=== PATIENT | female | born 1955 | race Caucasian/White ===

== ENCOUNTER 2017-10-13 01:39 | Emergency (ER) | payer BC ==
[~2017-10-13] VITALS: Ht 152.4 cm; Wt 59.0 kg
[~2017-10-13 01:39] MED LIST: ASPIRIN81 M2 PO; BACTROBAN CREAM30 GM TOP; BRILINTA90 MG PO; COZAAR; COZAAR 25 MG TA25 M2 PO; CRESTOR20 MG PO; DOXYCYCLINE 10100 MG PO; EVISTA; EVISTA PO; LAMICTAL XR100 MG PO; LOPRESSOR 12.12.5 MG PO; MULTI VITAMIN1 EACH PO; MULTIVITAMINS PO; NITROGLYCERIN0.4 MG SUBLING; PEPCID40 MG PO; PROZAC; PROZAC 20 MG20 M1 PO; SPIRONOLACTONE25 M1 PO; VITAMIN D 5050000 I1 PO; VITAMIN D1000 UNI1 PO; VITAMINC500 PO
[2017-10-13] MEDS ORDERED: LITHIUM CARBON150 MG PO (01:45)
[2017-10-13 02:12] LABS: ABSOLUTE BASOPHILS 0.1 thou/uL (0.0-0.2); ABSOLUTE EOSINOPHILS 0.4 thou/uL (0.0-0.7); ABSOLUTE MONOCYTES 1.1 thou/uL (0.0-1.2); ABSOLUTE NEUTROPHILS 6.7 thou/uL (1.6-8.1); BASOPHILS 0.8 %; EOSINOPHILS 3.8 %; HEMATOCRIT 35.7 % (37.0-47.0); HEMOGLOBIN 11.9 gm/dL (12.0-15.0); LYMPHOCYTES 19.8 %; MCH 30.1 pg (26.0-34.0); MCHC 33.3 g/dL (28.0-37.0); MCV 90.6 fL (80.0-100.0); MONOCYTES 10.4 %; MPV 7.2 fl. (7.2-11.1); NUCLEATED RBCS 0 /100WBC; PLATELET COUNT* 287 thou/uL (150-400); POLYS 65.2 %; RBC 3.94 mil/uL (4.20-5.00); RDW-CV 13.5 % (10.5-14.5); WBC 10.2 thou/uL (4.0-11.0)
[2017-10-13 02:16] LABS: ANION GAP 6 mmol/L (7-16); BUN 24 mg/dL (7-18); CHLORIDE 102 mmol/L (98-107); CO2 32 mmol/L (21-32); CREATININE 1.1 mg/dL (0.6-1.3); GLUCOSE 103 mg/dL (70-99); POTASSIUM 3.8 mmol/L (3.5-5.1); SODIUM 140 mmol/L (136-145)
[2017-10-13 02:26] LABS: APTT 24.7 Seconds (25.0-31.3); PROTIME 10.2 Seconds (9.20-11.50)
[2017-10-13 02:35] LABS: ALBUMIN 3.8 g/dL (3.4-5.0); ALKALINE PHOSPHATASE 71 U/L (46-116); CK-MB MASS 1.3 ng/mL (<0.5-3.6); LIPASE 450 U/L (73-393); NT-PRO BRAIN NAT PEPTIDE 264 pg/mL (<300); SGOT 20 U/L (15-37); SGPT 30 U/L (30-65); TOTAL BILIRUBIN 0.1 mg/dL (<0.1-1.0); TOTAL PROTEIN 7.1 g/dL (6.4-8.2); TROPONIN-I LEVEL <0.06 ng/mL (<0.06)
[2017-10-13 03:28] VITALS: BP 124/48
--- NOTE | 2017-10-13 11:49 | EKG ---
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 : 1955 Requested By: Raffaele Broderick Order Number: [id number] MD: Ron Yu Measurements Intervals [place] Rate: 61 P: 1 WI: 134 QRS: -8 QRSD: 94 T: 70 QT: 407 QTc: 410 Interpretive Statements Sinus rhythm Atrial premature complex Abnormal T, consider ischemia, anterior leads Compared to ECG 09/08/2014 12:28:27 Atrial premature complex(es) now present Possible ischemia now present T-wave abnormality still present Electronically Signed On 10-13-2017 11:49:10 [employer] by Ron Yu [email or web address] <ELECTRONICALLY SIGNED> By: Ron Yu MD, FACC 10/13/17 [id number] [id number] Ron Yu MD, [facility] /EPI
== END 2017-10-13 03:31 | disposition home or self-care (01) ==
LOC: M.ERS 01:39
PROVIDERS: Family Medicine
DX: R00.2 Palpitations (principal); I10 Essential (primary) hypertension; I25.2 Old myocardial infarction; Z95.5 Presence of coronary angioplasty implant and graft; Z88.5 Allergy status to narcotic agent; Z91.040 Latex allergy status; Z88.0 Allergy status to penicillin; Z88.8 Allergy status to other drugs, medicaments and biological substances

== ENCOUNTER 2019-12-22 02:36 | Emergency (ER) | payer OTHER ==
[~2019-12-22] VITALS: Ht 165.1 cm; Wt 54.6 kg
[~2019-12-22 02:36] MED LIST changes: +CEFPODOXIME PR200 M1 PO; +DIFLUCAN200 MG PO; +FLAGYL500 M1 PO; +LITHIUM CARBON150 MG PO; -LOPRESSOR 12.12.5 MG PO; +LOPRESSOR25 PO; +PLAVIX 75 MG TA75 MG PO; +PROTONIX 20 MG20 M1 PO
[2019-12-22 03:14] LABS: ABSOLUTE BASOPHILS 0.1 thou/uL (0.0-0.2); ABSOLUTE EOSINOPHILS 0.4 thou/uL (0.0-0.7); ABSOLUTE LYMPHOCYTES 1.8 thou/uL (0.8-5.3); ABSOLUTE MONOCYTES 0.6 thou/uL (0.0-1.2); ABSOLUTE NEUTROPHILS 4.9 thou/uL (1.6-8.1); BASOPHILS 1.5 %; HEMATOCRIT 40.9 % (37.0-47.0); HEMOGLOBIN 13.7 gm/dL (12.0-15.0); LYMPHOCYTES 23.1 %; MCHC 33.6 g/dL (28.0-37.0); MCV 89.3 fL (80.0-100.0); MONOCYTES 7.9 %; NUCLEATED RBCS 0 /100WBC; PLATELET COUNT* 353 thou/uL (150-400); POLYS 62.5 %; RBC 4.58 mil/uL (4.20-5.00); RDW-CV 13.4 % (10.5-14.5); WBC 7.9 thou/uL (4.0-11.0)
[2019-12-22 03:32] LABS: CALCIUM 8.9 mg/dL (8.5-10.1); CREATININE 0.9 mg/dL (0.6-1.3)
[2019-12-22 03:33] LABS: APTT 24.3 Seconds (25.0-31.3); PROTIME 10.1 Seconds (9.20-11.50)
[2019-12-22 03:44] LABS: ALBUMIN 3.5 g/dL (3.4-5.0); MAGNESIUM 2.1 mg/dL (1.8-2.4); TOTAL BILIRUBIN 0.2 mg/dL (<0.1-1.0); TOTAL PROTEIN 6.8 g/dL (6.4-8.2)
[2019-12-22 03:55] VITALS: BP 137/62
--- NOTE | 2019-12-22 10:35 | EKG ---
[place] [address] ELECTROCARDIOGRAM REPORT Name: SHANICE JONES Wang Room: [facility]#: [id number] Admission: 12/22/19 Attend Phys: Discharge: 12/22/19 Date of : 55 Date of Service: 12/22/19 0239 Report #: [id number] THIS REPORT FOR: //name// [facility] [place] ED Test Date: 2019-12-22 Test Time: 02:39:33 Pat Name: SHANICE JONES Department: Room: Gender: F Line Helper: AIDE : 1955 Requested By: Raffaele Broderick Order Number: [id number] MD: Eligio Díaz Measurements Intervals [place] Rate: 56 P: 40 MS: 148 QRS: -13 QRSD: 95 T: 38 QT: 412 QTc: 398 Interpretive Statements Sinus rhythm Low voltage, precordial leads Borderline T abnormalities, anterior leads Compared to ECG 10/13/2017 01:43:01 Low QRS voltage now present Atrial premature complex(es) no longer present T-wave abnormality still present Electronically Signed On 12-22-2019 10:33:40 CDT by Eligio Díaz [email or web address] <ELECTRONICALLY SIGNED> By: Eligio Díaz MD, FACC 12/22/19 1033 [id number] Eligio Díaz MD, [facility] /EPI
== END 2019-12-22 03:55 | disposition home or self-care (01) ==
LOC: M.ERS 02:36
PROVIDERS: Family Medicine
DX: F41.9 Anxiety disorder, unspecified (principal); I10 Essential (primary) hypertension; K21.9 Gastro-esophageal reflux disease without esophagitis; J45.909 Unspecified asthma, uncomplicated; E78.00 Pure hypercholesterolemia, unspecified; Z88.6 Allergy status to analgesic agent; Z88.5 Allergy status to narcotic agent; Z91.040 Latex allergy status; Z88.0 Allergy status to penicillin; Z88.8 Allergy status to other drugs, medicaments and biological substances; Z90.710 Acquired absence of both cervix and uterus; Z98.890 Other specified postprocedural states; Z95.5 Presence of coronary angioplasty implant and graft